=== PATIENT | male | born 2000 | race Caucasian/White ===

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

== ENCOUNTER → 2024-04-03 | Outpatient (REF) | payer BC ==
[2024-04-03 21:50] LABS: Trichomonas vaginalis (AMP) NOT DETECTED (NEGATIVE)
[2024-04-03 22:13] LABS: GC DNA AMPLIFICATION NEGATIVE (NEGATIVE)
== END ==
LOC: M WUC 19:29
PROVIDERS: ATTEND Physician Assistant
DX: R30.0 Dysuria (principal)

== ENCOUNTER → 2024-04-04 | Outpatient (CLI) | payer BC ==
[2024-04-04 14:08] LABS: HIV 1&2 SCREEN NEGATIVE (NEGATIVE)
== END ==
LOC: M WUC 09:35
PROVIDERS: ATTEND Physician Assistant
DX: R30.0 Dysuria (principal)